=== PATIENT | male | born 1970 | race Caucasian/White ===

== ENCOUNTER 2017-03-17 11:57 | Emergency (ER) | payer MEDICAID ==
[~2017-03-17] VITALS: Ht 157.5 cm; Wt 93.5 kg
[~2017-03-17 11:57] MED LIST: CEPH-443 PO; ERYT1OIN6 RIGHT EYE
[2017-03-17 12:14] VITALS: Ht 157.5 cm; Wt 93.5 kg
[2017-03-17] MEDS ORDERED: TETRACAINE 0.5% 4 ML OPH RIGHT EYE ONE (14:30)
[2017-03-17] MEDS ORDERED: ERYT1OIN6 OP (14:34)
[2017-03-17] MEDS ORDERED: IBUP-1542 PO (14:34)
--- NOTE | 2017-03-17 14:39 | ERD ---
ER Documentation Chief Complaint Date/Time DATE: 03/17/17 TIME: 14:38 Chief Complaint pt bib self with c/o right eye irritation for 2 days HPI This 47-year-old male complains of right eye discomfort. 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 He denies any visual deficits or changes. His tetanus is up-to-date ROS All systems reviewed and are negative except as per history of present illness. Medications Home Meds Active Scripts Ibuprofen* (Ibuprofen*) 600 Mg Tablet, 600 MG PO Q6, #14 TAB Prov:DIONNE MURILLO MD 03/17/17 Erythromycin Base (Erythromycin) 1 Gm Oint...g., 1 GM OP QID for 7 Days Prov:DIONNE MURILLO MD 03/17/17 Erythromycin (Erythromycin Opth) 3.5 Gm Oint..gm., 1 APPLIC RIGHT EYE QID for 7 Days, EA Prov:MISSAEL TRISTAN PA-C 05/16/15 Cephalexin* (Keflex*) 500 Mg Capsule, 500 MG PO QID for 5 Days, CAP Prov:MISSAEL TRISTAN PA-C 05/16/15 Allergies Allergies: Coded Allergies: No Known Allergy (Unverified , 03/17/17) PMhx/Soc Medical and Surgical Hx: pt denies Medical Hx, pt denies Surgical Hx Hx Alcohol Use: No Hx Substance Use: No Hx Tobacco Use: No Smoking Status: Never smoker Physical Exam Vitals Vital Signs Date Time Temp Pulse Resp B/P Pulse Ox O2 Delivery O2 Flow Rate FiO2 03/17/17 12:14 99.0 80 18 129/76 100 Physical Exam Const: [] Alert, [id number] per Head: Atraumatic Eyes: Right conjunctival redness. There is a visible less than 1 mm foreign body at 6:00 on the cornea. Eyes are PERRLA and anterior chambers appears normal. Visual acuity shows no acute abnormalities. ENT: Normal External Ears, Nose and Mouth. Neck: Full range of motion..~ No meningismus. Resp: Clear to auscultation bilaterally Cardio: Regular rate and rhythm, no murmurs Abd: Soft, non tender, non distended. Normal bowel sounds Skin: No petechiae or rashes Back: No midline or flank tenderness Ext: No cyanosis, or edema Neur: Awake and alert Psych: Normal Mood and Affect Results 24 hrs Current Medications Medications (Trade) Dose Ordered Sig/Alisa Route PRN Reason Start Time Stop Time Status Last Admin Dose Admin Tetracaine HCl (Tetracaine 0.5% Steri-Unit Scarlet) 1 drop ONCE ONCE RIGHT EYE 03/17/17 14:30 03/17/17 14:31 DC Procedures/MDM Patient presents with a 4-year-old foreign body without complications suggest visual changes or globe rupture. Note-tetracaine was applied. The small black punctate foreign body was removed successfully using 18-gauge needle and cotton swab. Patient tolerated procedure well. We discharged home the prescription for erythromycin and ibuprofen and ophthalmology and primary care follow-up. His should return for new or worsening symptoms as written after instructions. The patient was stable with no new complaints during the ER course. Clinically, there is no current evidence to suggest meningitis, sepsis, acute abdomen, pneumonia, acute coronary syndrome, pulmonary embolism, or any other emergent condition appearing to require further evaluation or hospitalization. The patient should certainly return for any new or worsening symptoms per the aftercare instructions. They should otherwise follow-up with her primary care doctor for reevaluation this week. Departure Diagnosis: Primary Impression: Corneal foreign body Encounter type: initial encounter Laterality: right Qualified Code: T15.01XA - Foreign body of right cornea, initial encounter Condition: Stable Patient Instructions: Corneal Foreign Body, Removed Referrals: [facility] Hours: Mon - Fri 9:00 AM - 5:00 PM Additional Instructions: See interface control officer this week for persistent symptoms. Recheck otherwise for new or worsening symptoms. DIONNE MURILLO MD Mar 17, 2017 14:39
== END 2017-03-17 14:54 | disposition home or self-care (01) ==
LOC: FTE 11:57
DX: T15.01XA Foreign body in cornea, right eye, initial encounter (principal); X58.XXXA Exposure to other specified factors, initial encounter; Y92.9 Unspecified place or not applicable
CPT/HCPCS: Z7502; Z7610; 99283